=== PATIENT | male | born 1955 | race Caucasian/White ===

== ENCOUNTER 2016-11-15 14:05 | Inpatient (IN) | payer MEDICARE ==
[~2016-11-15] VITALS: Ht 182.9 cm; Wt 118.5 kg
[~2016-11-15 14:05] MED LIST: ALBU8.5H3 INH; AMIO200T42 PO; DIGO125T6 PO; DOCU250C16 PO; FERR324T18 PO; FERR325T10 PO; FERR325T20 PO; FLUT1BLS INH; FLUT1DIS3 INH; FURO-92 PO; FURO-93 PO; FURO20TA3 PO; FURO40TA6 PO; HYDR-3138 PO; LEVO100T5 PO; LEVO112T2 PO; LEVO112T4 PO; LEVO75TA5 PO; LISI2.5T PO; MAGN400T26 PO; METO2.5T PO; METO25TA35 PO; OMEP-110 PO; OXYC5TAB3 PO; POLY17PO5 PO; POTA20PA8 PO; PRAV20TA PO; PRAV20TA2 PO; SPIR25TA3 PO; WARF10TA6 PO; WARF10TA6 PO-COUM; WARF2.5T73 PO; WARF2.5T73 PO-COUM; WARF5TAB7 PO; WARF5TAB7 PO-COUM; WARF7.5T PO
[2016-11-15] MEDS ORDERED: ADENOSINE 6 MG/2 ML ONE (14:11)
[2016-11-15] MEDS ORDERED: DILTIAZEM 5 MG/ML, 5ML ONE ×2 (14:12→14:34)
[2016-11-15] MEDS ORDERED: ADENOSINE 6 MG/2 ML IVPush ONE (14:30)
[2016-11-15] MEDS ORDERED: SODIUM CHLORIDE FLUSH 10ML SYR IVF ONE (14:30)
[2016-11-15] MEDS ORDERED: DILTIAZEM 5 MG/ML, 5ML IV ONE ×2 (14:30→15:00)
[2016-11-15 14:49] LABS: BLOOD UREA NITROGEN 22 mg/dL (7-18)
[2016-11-15 14:55] LABS: IS PT STATUS REG ER OR PRE ER? YES
[2016-11-15] MEDS ORDERED: SODIUM CHLORIDE FLUSH 10ML SYR IVF PRN (16:00)
[2016-11-15 16:54] VITALS: BP 118/79
[2016-11-15] MEDS ORDERED: hydrALAzine 20 MG/ML, 1ML IVPush PRN (17:00)
[2016-11-15] MEDS ORDERED: NITROGLYCERIN 0.4 MG/SPRAY SL PRN (17:00)
[2016-11-15] MEDS ORDERED: POLYETHYLENE GLYCOL 17 GM PACKET PO PRN (17:00)
[2016-11-15] MEDS ORDERED: ONDANSETRON ODT 4 MG PO PRN (17:00)
[2016-11-15] MEDS ORDERED: BISACODYL 10 MG SUPP PR PRN (17:00)
[2016-11-15] MEDS ORDERED: ACETAMINOPHEN 325 MG TABLET PO PRN (17:00)
[2016-11-15] MEDS ORDERED: morphine SULFATE 10 MG/ML, 1ML IVPush PRN (17:00)
[2016-11-15] MEDS ORDERED: ONDANSETRON 2MG/ML, 2ML IVPush PRN (17:00)
[2016-11-15] MEDS ORDERED: DOCUSATE 100 MG CAPSULE PO PRN (17:00)
[2016-11-15] MEDS ORDERED: WARFARIN 5 MG TABLET PO-COUM SCH (18:00)
[2016-11-15] MEDS ORDERED: MAGNESIUM SULFATE PMX 2GM/50ML 50 ML IV ONE (18:00)
[2016-11-15 20:00] VITALS: BP 111/72
[2016-11-15 20:27] LABS: IS PT STATUS REG ER OR PRE ER? NO
[2016-11-15] MEDS: SPIRONOLACTONE 25 MG TABLET PO SCH (21:03)
[2016-11-15] MEDS: DOCUSATE CALCIUM 240 MG CAPSULE PO SCH (21:03)
[2016-11-15] MEDS: ENOXAPARIN 80 MG/0.8 ML SQ SCH (21:03)
[2016-11-15] MEDS: PRAVASTATIN 20 MG TABLET PO SCH (21:03)
[2016-11-15] MEDS: FERROUS SULFATE 325 MG TABLET PO SCH (21:03)
[2016-11-15] MEDS ORDERED: PNEUMOCOCCAL 23 VACCINE IM-VACC ONE (22:00)
[2016-11-16 00:53] VITALS: BP 189/99
[2016-11-16] MEDS: DILTIAZEM 5 MG/ML, 5ML IVPush PRN ×3 (01:10→08:08)
[2016-11-16 01:11] VITALS: BP 106/73
[2016-11-16 02:45] LABS: BLOOD UREA NITROGEN 23 mg/dL (7-18)
[2016-11-16 02:52] LABS: IS PT STATUS REG ER OR PRE ER? NO
[2016-11-16 02:54] LABS: ASPARTATE AMINO TRANSFERASE 30 U/L (15-37); TOTAL IRON BINDING CAPACITY 280 mcg/dL (250-450)
[2016-11-16 03:52] VITALS: BP 117/73
[2016-11-16 06:45] VITALS: BP 123/77
[2016-11-16] MEDS: SPIRONOLACTONE 25 MG TABLET PO SCH ×2 (08:07→20:50)
[2016-11-16] MEDS: FERROUS SULFATE 325 MG TABLET PO SCH ×2 (08:07→10:14)
[2016-11-16] MEDS: ENOXAPARIN 80 MG/0.8 ML SQ SCH ×2 (08:08→20:50)
[2016-11-16] MEDS: MAGNESIUM OXIDE 400 MG TABLET PO SCH (08:10)
[2016-11-16] MEDS ORDERED: LEVOTHYROXINE 112 MCG TABLET PO SCH ×2 (09:00)
[2016-11-16] MEDS ORDERED: DILTIAZEM 120 MG CAP.ER.24H PO SCH (10:00)
[2016-11-16] MEDS ORDERED: MORPHINE SULFATE 4 MG/ML, 1ML IVPush PRN (12:00)
[2016-11-16 13:14] VITALS: BP 119/84
[2016-11-16] MEDS ORDERED: DIGOXIN 0.25 MG/ML, 2ML ONE (13:25)
[2016-11-16] MEDS ORDERED: DIGOXIN 0.25 MG/ML, 2ML IVPush ONE (14:00)
[2016-11-16] MEDS ORDERED: DILTIAZEM 5 MG/ML, 5ML IVPush ONE (14:00)
[2016-11-16] MEDS ORDERED: WARFARIN 3 MG TABLET PO-COUM ONE (18:00)
[2016-11-16 20:03] VITALS: BP 115/76
[2016-11-16] MEDS: DOCUSATE CALCIUM 240 MG CAPSULE PO SCH (20:50)
[2016-11-16] MEDS: DILTIAZEM 120 MG CAP.ER.12H PO SCH (20:50)
[2016-11-16] MEDS: PRAVASTATIN 20 MG TABLET PO SCH (20:50)
[2016-11-17 02:00] VITALS: BP 104/62
[2016-11-17 05:35] LABS: BLOOD UREA NITROGEN 21 mg/dL (7-18)
[2016-11-17] MEDS: ENOXAPARIN 80 MG/0.8 ML SQ SCH ×2 (06:14→16:47)
[2016-11-17] MEDS: LEVOTHYROXINE 125 MCG TABLET PO SCH (06:44)
[2016-11-17] MEDS: DOCUSATE CALCIUM 240 MG CAPSULE PO SCH (07:35)
[2016-11-17] MEDS: SPIRONOLACTONE 25 MG TABLET PO SCH ×2 (07:36→21:47)
[2016-11-17] MEDS: MAGNESIUM OXIDE 400 MG TABLET PO SCH (07:36)
[2016-11-17] MEDS: DILTIAZEM 120 MG CAP.ER.12H PO SCH (07:36)
[2016-11-17] MEDS: FERROUS SULFATE 325 MG TABLET PO SCH (07:36)
[2016-11-17 07:41] VITALS: BP 128/70
[2016-11-17] MEDS ORDERED: MAGNESIUM SULFATE PMX 2GM/50ML 50 ML IV ONE (10:30)
[2016-11-17] MEDS ORDERED: POTASSIUM CHLORIDE 20 MEQ TAB.ER.PRT PO ONE (10:30)
[2016-11-17] MEDS ORDERED: DILTIAZEM 120 MG CAP.ER.12H PO ONE (12:00)
[2016-11-17 13:23] VITALS: BP 114/65
[2016-11-17] MEDS ORDERED: WARFARIN 2 MG TABLET PO-COUM ONE (18:00)
[2016-11-17 21:41] VITALS: BP 123/71
[2016-11-17] MEDS: PRAVASTATIN 20 MG TABLET PO SCH (21:47)
[2016-11-18 01:18] VITALS: BP 120/68
[2016-11-18 05:08] LABS: BLOOD UREA NITROGEN 20 mg/dL (7-18)
[2016-11-18] MEDS: ENOXAPARIN 80 MG/0.8 ML SQ SCH (05:15)
[2016-11-18] MEDS: LEVOTHYROXINE 125 MCG TABLET PO SCH (05:15)
[2016-11-18 06:51] VITALS: BP 116/63
[2016-11-18] MEDS ORDERED: DILTIAZEM 120 MG CAP.ER.12H PO SCH (09:00)
[2016-11-18] MEDS: SPIRONOLACTONE 25 MG TABLET PO SCH (09:51)
[2016-11-18] MEDS: MAGNESIUM OXIDE 400 MG TABLET PO SCH (09:52)
[2016-11-18] MEDS: FERROUS SULFATE 325 MG TABLET PO SCH (09:52)
[2016-11-18] MEDS ORDERED: SPIR25TA PO (10:54)
[2016-11-18] MEDS ORDERED: DILT120C11 PO (10:54)
[2016-11-18] MEDS ORDERED: MAGN400T26 PO (10:54)
[2016-11-18] MEDS ORDERED: LEVO125T PO (10:54)
[2016-11-18 15:24] VITALS: BP 123/70
[2016-11-18] MEDS ORDERED: WARFARIN 3 MG TABLET PO-COUM ONE (18:00)
== END 2016-11-18 17:27 | disposition home or self-care (01) | DRG 309 ==
LOC: ED 15:41 → EDIP 15:53 → 5SO 16:45
PROVIDERS: ADMIT Hospitalist; ATTEND Hospitalist
DX: I48.0 Paroxysmal atrial fibrillation (principal); D68.69 Other thrombophilia; I50.40 Unspecified combined systolic (congestive) and diastolic (congestive) heart failure; I13.0 Hypertensive heart and chronic kidney disease with heart failure and stage 1 through stage 4 chronic kidney disease, or unspecified chronic kidney disease; R00.0 Tachycardia, unspecified; D63.8 Anemia in other chronic diseases classified elsewhere; D69.6 Thrombocytopenia, unspecified; E03.9 Hypothyroidism, unspecified; E11.22 Type 2 diabetes mellitus with diabetic chronic kidney disease; E66.9 Obesity, unspecified; E78.5 Hyperlipidemia, unspecified; G47.30 Sleep apnea, unspecified; E83.42 Hypomagnesemia; I27.2 Other secondary pulmonary hypertension; I45.10 Unspecified right bundle-branch block; H53.9 Unspecified visual disturbance; R16.1 Splenomegaly, not elsewhere classified; K75.81 Nonalcoholic steatohepatitis (NASH); J44.9 Chronic obstructive pulmonary disease, unspecified; N18.3 Chronic kidney disease, stage 3 (moderate); Z79.01 Long term (current) use of anticoagulants; Z87.74 Personal history of (corrected) congenital malformations of heart and circulatory system; Z87.891 Personal history of nicotine dependence; I69.312 Visuospatial deficit and spatial neglect following cerebral infarction; Z91.14 Patient's other noncompliance with medication regimen; Z98.49 Cataract extraction status, unspecified eye; Q24.9 Congenital malformation of heart, unspecified; Z88.2 Allergy status to sulfonamides; Z79.899 Other long term (current) drug therapy; Z68.35 Body mass index [BMI] 35.0-35.9, adult
CPT/HCPCS: 36415; 71010; 80048; 80053; 82040; 82247; 82248; 83540; 83550; 83735; 84100; 84439; 84443; 84484; 85025; 85610; 85730; 90732; 93005; 96374; 96375; J0153; J1650; J1160; J3475

== ENCOUNTER 2016-11-24 16:01 | Inpatient (IN) | payer MEDICARE ==
[~2016-11-24] VITALS: Ht 182.9 cm; Wt 113.8 kg
[~2016-11-24 16:01] MED LIST changes: +DILT120C11 PO; +LEVO125T PO; +SPIR25TA PO
[2016-11-24] MEDS ORDERED: ADENOSINE 6 MG/2 ML ONE (16:24)
[2016-11-24] MEDS ORDERED: DILTIAZEM 125 MG in DEXTROSE 5% 100 ML IV SCH (16:27)
[2016-11-24] MEDS ORDERED: DILTIAZEM 5 MG/ML, 5ML IV ONE (16:30)
[2016-11-24] MEDS ORDERED: SODIUM CHLORIDE 0.9% 1,000ML IVBOLUS ONE (16:30)
[2016-11-24] MEDS ORDERED: ADENOSINE 6 MG/2 ML IVPush ONE ×2 (16:30)
[2016-11-24] MEDS ORDERED: SODIUM CHLORIDE FLUSH 10ML SYR IVF ONE (16:30)
[2016-11-24] MEDS ORDERED: DILTIAZEM 5 MG/ML, 5ML ONE (16:53)
[2016-11-24 17:01] LABS: ASPARTATE AMINO TRANSFERASE 30 U/L (15-37); BLOOD UREA NITROGEN 23 mg/dL (7-18)
[2016-11-24] MEDS ORDERED: DILTIAZEM 5 MG/ML, 5ML IVPush ONE (17:30)
[2016-11-24] MEDS ORDERED: POLYETHYLENE GLYCOL 17 GM PACKET PO PRN (19:00)
[2016-11-24] MEDS ORDERED: ACETAMINOPHEN 325 MG TABLET PO PRN (19:00)
[2016-11-24] MEDS ORDERED: ONDANSETRON 2MG/ML, 2ML IVPush PRN (19:00)
[2016-11-24] MEDS ORDERED: BISACODYL 10 MG SUPP PR PRN (19:00)
[2016-11-24] MEDS ORDERED: DILTIAZEM 125 MG in SODIUM CHLORIDE 0.9% 100 ML IV PRN (19:00)
[2016-11-24 19:30] LABS: IS PT STATUS REG ER OR PRE ER? NO
[2016-11-24] MEDS ORDERED: HEPARIN 5,000 UNITS/ML, 1ML IV ONE (19:30)
[2016-11-24 20:33] VITALS: BP 101/67
[2016-11-24] MEDS: HEPARIN 25,000 UNITS/500ML PMX 500 ML IV PRN (21:49)
[2016-11-24] MEDS: SPIRONOLACTONE 25 MG TABLET PO SCH (23:29)
[2016-11-24] MEDS: SODIUM CHLORIDE FLUSH 10ML SYR IVF SCH (23:29)
[2016-11-24] MEDS: PRAVASTATIN 20 MG TABLET PO SCH (23:29)
[2016-11-24] MEDS: FERROUS SULFATE 325 MG TABLET PO SCH (23:29)
[2016-11-24] MEDS: INSULIN ASPART 100 UNITS/ML, PEN SQ-INSULIN SCH (23:30)
[2016-11-25 00:38] VITALS: BP 114/91
[2016-11-25 01:31] LABS: IS PT STATUS REG ER OR PRE ER? NO
[2016-11-25] MEDS: HEPARIN 5,000 UNITS/ML, 1ML IV PRN (05:07)
[2016-11-25] MEDS: LEVOTHYROXINE 125 MCG TABLET PO SCH (06:25)
[2016-11-25] MEDS: INSULIN ASPART 100 UNITS/ML, PEN SQ-INSULIN SCH ×4 (07:00→21:15)
[2016-11-25 07:10] LABS: ASPARTATE AMINO TRANSFERASE 26 U/L (15-37); BLOOD UREA NITROGEN 25 mg/dL (7-18)
[2016-11-25 07:15] LABS: IS PT STATUS REG ER OR PRE ER? NO
[2016-11-25 07:30] VITALS: BP 108/68
[2016-11-25] MEDS ORDERED: WARFARIN 7.5 MG TABLET PO-COUM SCH (09:00)
[2016-11-25] MEDS: SPIRONOLACTONE 25 MG TABLET PO SCH ×2 (09:30→19:50)
[2016-11-25] MEDS: MAGNESIUM OXIDE 400 MG TABLET PO SCH (09:30)
[2016-11-25] MEDS: SODIUM CHLORIDE FLUSH 10ML SYR IVF SCH ×2 (09:30→19:51)
[2016-11-25] MEDS: SENNA/DOCUSATE TABLET PO SCH (09:31)
[2016-11-25] MEDS: FERROUS SULFATE 325 MG TABLET PO SCH ×2 (09:31→19:50)
[2016-11-25 14:00] VITALS: BP 116/75
[2016-11-25] MEDS: METOPROLOL TARTRATE 25 MG TABLET PO SCH (16:42)
[2016-11-25] MEDS ORDERED: WARFARIN 7.5 MG TABLET PO-COUM ONE (18:00)
[2016-11-25] MEDS: HEPARIN 25,000 UNITS/500ML PMX 500 ML IV PRN (18:24)
[2016-11-25 19:04] VITALS: BP 109/71
[2016-11-25] MEDS: PRAVASTATIN 20 MG TABLET PO SCH (19:50)
[2016-11-26 02:36] VITALS: BP 105/70
[2016-11-26 05:18] VITALS: BP 107/68
[2016-11-26] MEDS: LEVOTHYROXINE 125 MCG TABLET PO SCH (05:18)
[2016-11-26] MEDS: METOPROLOL TARTRATE 25 MG TABLET PO SCH (05:18)
[2016-11-26 05:36] LABS: ASPARTATE AMINO TRANSFERASE 24 U/L (15-37); BLOOD UREA NITROGEN 28 mg/dL (7-18)
[2016-11-26] MEDS: HEPARIN 5,000 UNITS/ML, 1ML IV PRN (05:46)
[2016-11-26] MEDS: INSULIN ASPART 100 UNITS/ML, PEN SQ-INSULIN SCH ×2 (07:24→12:01)
[2016-11-26 07:53] VITALS: BP 102/72
[2016-11-26] MEDS: SPIRONOLACTONE 25 MG TABLET PO SCH (08:19)
[2016-11-26] MEDS: SODIUM CHLORIDE FLUSH 10ML SYR IVF SCH (08:19)
[2016-11-26] MEDS: SENNA/DOCUSATE TABLET PO SCH (08:20)
[2016-11-26] MEDS: MAGNESIUM OXIDE 400 MG TABLET PO SCH (08:20)
[2016-11-26] MEDS: FERROUS SULFATE 325 MG TABLET PO SCH (08:20)
[2016-11-26] MEDS ORDERED: METO25TA35 PO (12:26)
[2016-11-26] MEDS ORDERED: WARF7.5T PO-COUM (12:26)
[2016-11-26] MEDS ORDERED: WARFARIN 7.5 MG TABLET PO-COUM SCH (18:00)
== END 2016-11-26 14:35 | disposition home or self-care (01) | DRG 291 ==
LOC: ED 16:18 → EDIP 18:01 → 5SO 19:14 → DCLOUNGE 11-26 14:16
PROVIDERS: ADMIT Hospitalist; ATTEND Hospitalist
DX: I13.0 Hypertensive heart and chronic kidney disease with heart failure and stage 1 through stage 4 chronic kidney disease, or unspecified chronic kidney disease (principal); I50.43 Acute on chronic combined systolic (congestive) and diastolic (congestive) heart failure; D68.69 Other thrombophilia; J84.9 Interstitial pulmonary disease, unspecified; R17 Unspecified jaundice; I48.0 Paroxysmal atrial fibrillation; J44.9 Chronic obstructive pulmonary disease, unspecified; N18.9 Chronic kidney disease, unspecified; I45.10 Unspecified right bundle-branch block; E03.9 Hypothyroidism, unspecified; E11.22 Type 2 diabetes mellitus with diabetic chronic kidney disease; G47.33 Obstructive sleep apnea (adult) (pediatric); I07.1 Rheumatic tricuspid insufficiency; I27.2 Other secondary pulmonary hypertension; I35.8 Other nonrheumatic aortic valve disorders; Z87.891 Personal history of nicotine dependence; I69.398 Other sequelae of cerebral infarction; Z79.01 Long term (current) use of anticoagulants; Z79.899 Other long term (current) drug therapy; Z88.2 Allergy status to sulfonamides
CPT/HCPCS: 36415; 71010; 80053; 82962; 83036; 83735; 83880; 84439; 84443; 84484; 85025; 85520; 85610; 85730; 93005; 93306; 96365; 96366; 96375; J0153; J1644; J1815; J7030

== ENCOUNTER 2016-12-12 13:38 | Inpatient (IN) | payer MEDICARE ==
[~2016-12-12] VITALS: Ht 182.9 cm; Wt 109.2 kg
[~2016-12-12 13:38] MED LIST changes: +WARF7.5T PO-COUM
[2016-12-12] MEDS ORDERED: DILTIAZEM 5 MG/ML, 5ML IVPush STA (14:07)
[2016-12-12] MEDS ORDERED: DILTIAZEM 5 MG/ML, 5ML ONE (14:20)
[2016-12-12] MEDS ORDERED: SODIUM CHLORIDE FLUSH 10ML SYR IVF ONE (14:30)
[2016-12-12] MEDS ORDERED: SODIUM CHLORIDE 0.9% 1,000ML IVBOLUS ONE (14:30)
[2016-12-12 14:45] LABS: HEMATOCRIT 46.2 % (39.2-51.8); HEMOGLOBIN 15.8 g/dL (13.7-18.0); WHITE BLOOD COUNT 8.4 x10^3/uL (3.4-10)
[2016-12-12 16:21] LABS: BLOOD UREA NITROGEN 27 mg/dL (7-18)
[2016-12-12 16:25] LABS: ASPARTATE AMINO TRANSFERASE 117 U/L (15-37)
[2016-12-12 16:31] LABS: IS PT STATUS REG ER OR PRE ER? YES
[2016-12-12] MEDS ORDERED: WARFARIN 7.5 MG TABLET PO-COUM SCH (18:00)
[2016-12-12] MEDS ORDERED: BISACODYL 10 MG SUPP PR PRN (18:00)
[2016-12-12] MEDS ORDERED: ONDANSETRON 2MG/ML, 2ML IVPush PRN (18:00)
[2016-12-12] MEDS ORDERED: ACETAMINOPHEN 325 MG TABLET PO PRN (18:00)
[2016-12-12] MEDS ORDERED: POLYETHYLENE GLYCOL 17 GM PACKET PO PRN (18:00)
[2016-12-12 18:33] VITALS: BP 109/74
[2016-12-12 19:48] VITALS: BP 106/69
[2016-12-12] MEDS: SPIRONOLACTONE 25 MG TABLET PO SCH (20:05)
[2016-12-12] MEDS: DOCUSATE 100 MG CAPSULE PO SCH (20:05)
[2016-12-12] MEDS: FERROUS SULFATE 325 MG TABLET PO SCH (20:05)
[2016-12-12] MEDS: PRAVASTATIN 20 MG TABLET PO SCH (20:06)
[2016-12-12] MEDS: METOPROLOL TARTRATE 50 MG TABLET PO SCH (20:06)
[2016-12-12] MEDS: FUROSEMIDE 20 MG/2 ML IV SCH (20:06)
[2016-12-12] MEDS: SODIUM CHLORIDE FLUSH 10ML SYR IVF SCH (20:07)
[2016-12-12] MEDS ORDERED: ALBUTEROL SULFATE 2.5 MG/3 ML NPPB PRN (20:30)
[2016-12-13 02:50] VITALS: BP 98/63
[2016-12-13 05:00] LABS: HEMATOCRIT 38.8 % (39.2-51.8); HEMOGLOBIN 13.1 g/dL (13.7-18.0); WHITE BLOOD COUNT 5.9 x10^3/uL (3.4-10)
[2016-12-13 05:12] LABS: BLOOD UREA NITROGEN 30 mg/dL (7-18)
[2016-12-13 05:16] LABS: ASPARTATE AMINO TRANSFERASE 146 U/L (15-37)
[2016-12-13 05:32] VITALS: BP 97/63
[2016-12-13] MEDS: LEVOTHYROXINE 125 MCG TABLET PO SCH (05:32)
[2016-12-13 08:35] VITALS: BP 111/69
[2016-12-13] MEDS: METOPROLOL TARTRATE 50 MG TABLET PO SCH ×2 (08:39→17:02)
[2016-12-13] MEDS: FUROSEMIDE 20 MG/2 ML IV SCH ×2 (08:39→17:02)
[2016-12-13] MEDS: SPIRONOLACTONE 25 MG TABLET PO SCH ×2 (08:40→22:00)
[2016-12-13] MEDS: MAGNESIUM OXIDE 400 MG TABLET PO SCH (08:40)
[2016-12-13] MEDS: FERROUS SULFATE 325 MG TABLET PO SCH ×2 (08:40→22:00)
[2016-12-13] MEDS: SODIUM CHLORIDE FLUSH 10ML SYR IVF SCH ×2 (08:40→22:00)
[2016-12-13 14:00] VITALS: BP 95/62
[2016-12-13] MEDS ORDERED: CEFAZOLIN PMX 1GM/50ML 50 ML IVPB ONE (14:30)
[2016-12-13 17:05] VITALS: BP 106/70
[2016-12-13 18:40] VITALS: BP 108/72
[2016-12-13] MEDS: PRAVASTATIN 20 MG TABLET PO SCH (22:00)
[2016-12-13] MEDS: DOCUSATE 100 MG CAPSULE PO SCH (22:00)
[2016-12-14 01:35] VITALS: BP 103/68
[2016-12-14] MEDS: LEVOTHYROXINE 125 MCG TABLET PO SCH (06:08)
[2016-12-14] MEDS: METOPROLOL TARTRATE 50 MG TABLET PO SCH ×2 (06:08→17:24)
[2016-12-14 06:57] VITALS: BP 104/66
[2016-12-14] MEDS: FUROSEMIDE 20 MG/2 ML IV SCH ×2 (08:24→17:24)
[2016-12-14] MEDS: SPIRONOLACTONE 25 MG TABLET PO SCH ×2 (08:24→21:03)
[2016-12-14] MEDS: FERROUS SULFATE 325 MG TABLET PO SCH ×2 (08:24→21:03)
[2016-12-14] MEDS: MAGNESIUM OXIDE 400 MG TABLET PO SCH (08:24)
[2016-12-14] MEDS: SODIUM CHLORIDE FLUSH 10ML SYR IVF SCH ×2 (08:25→21:05)
[2016-12-14 15:33] VITALS: BP 102/69
[2016-12-14 20:59] VITALS: BP 101/67
[2016-12-14] MEDS: PRAVASTATIN 20 MG TABLET PO SCH (21:03)
[2016-12-14] MEDS: DOCUSATE 100 MG CAPSULE PO SCH (21:03)
[2016-12-15 01:33] VITALS: BP 99/66
[2016-12-15 05:24] VITALS: BP 109/75
[2016-12-15 05:25] LABS: HEMATOCRIT 38.9 % (39.2-51.8); HEMOGLOBIN 13.5 g/dL (13.7-18.0); WHITE BLOOD COUNT 4.3 x10^3/uL (3.4-10)
[2016-12-15] MEDS: LEVOTHYROXINE 125 MCG TABLET PO SCH (05:25)
[2016-12-15] MEDS: METOPROLOL TARTRATE 50 MG TABLET PO SCH ×2 (05:25→17:26)
[2016-12-15 05:33] LABS: BLOOD UREA NITROGEN 34 mg/dL (7-18)
[2016-12-15 05:36] LABS: ASPARTATE AMINO TRANSFERASE 97 U/L (15-37)
[2016-12-15 09:05] VITALS: BP 106/71
[2016-12-15] MEDS: SPIRONOLACTONE 25 MG TABLET PO SCH ×2 (09:06→20:59)
[2016-12-15] MEDS: FUROSEMIDE 20 MG/2 ML IV SCH (09:06)
[2016-12-15] MEDS: MAGNESIUM OXIDE 400 MG TABLET PO SCH (09:06)
[2016-12-15] MEDS: FERROUS SULFATE 325 MG TABLET PO SCH ×2 (09:06→21:00)
[2016-12-15] MEDS: SODIUM CHLORIDE FLUSH 10ML SYR IVF SCH ×2 (09:07→20:58)
[2016-12-15 13:56] VITALS: BP 106/68
[2016-12-15 20:00] VITALS: BP 100/66
[2016-12-15] MEDS: DOCUSATE 100 MG CAPSULE PO SCH (20:59)
[2016-12-15] MEDS: PRAVASTATIN 20 MG TABLET PO SCH (21:00)
[2016-12-16 02:01] VITALS: BP 96/59
[2016-12-16 04:57] LABS: ASPARTATE AMINO TRANSFERASE 77 U/L (15-37); BLOOD UREA NITROGEN 32 mg/dL (7-18)
[2016-12-16] MEDS: METOPROLOL TARTRATE 50 MG TABLET PO SCH (06:00)
[2016-12-16 08:46] VITALS: BP 112/74
[2016-12-16] MEDS ORDERED: CEFAZOLIN PMX 1GM/50ML 50 ML IVPB ONE (09:00)
[2016-12-16] MEDS ORDERED: ENOXAPARIN 120MG/0.8ML SQ SCH (09:00)
[2016-12-16] MEDS: SODIUM CHLORIDE FLUSH 10ML SYR IVF SCH (10:19)
[2016-12-16] MEDS: FUROSEMIDE 20 MG/2 ML IV SCH (10:19)
[2016-12-16] MEDS: SPIRONOLACTONE 25 MG TABLET PO SCH ×2 (10:20→19:53)
[2016-12-16] MEDS: FERROUS SULFATE 325 MG TABLET PO SCH ×2 (10:20→19:54)
[2016-12-16] MEDS: MAGNESIUM OXIDE 400 MG TABLET PO SCH (10:20)
[2016-12-16 13:16] VITALS: BP 94/69
[2016-12-16] MEDS: METOPROLOL TARTRATE 25 MG TABLET PO SCH ×2 (15:00→19:54)
[2016-12-16] MEDS ORDERED: DIGOXIN 0.25 MG/ML, 2ML IVPush ONE (15:00)
[2016-12-16 19:00] VITALS: BP 105/62
[2016-12-16] MEDS: DOCUSATE 100 MG CAPSULE PO SCH (19:53)
[2016-12-16] MEDS: PRAVASTATIN 20 MG TABLET PO SCH (19:53)
[2016-12-16] MEDS ORDERED: ONDANSETRON 2MG/ML, 2ML IVPush PRN (20:00)
[2016-12-16] MEDS ORDERED: ACETAMINOPHEN 325 MG TABLET PO PRN (20:00)
[2016-12-16] MEDS ORDERED: BISACODYL 10 MG SUPP PR PRN (20:00)
[2016-12-17 01:21] VITALS: BP 99/64
[2016-12-17] MEDS: METOPROLOL TARTRATE 25 MG TABLET PO SCH ×3 (04:38→17:06)
[2016-12-17] MEDS: SODIUM CHLORIDE FLUSH 10ML SYR IVF SCH ×3 (04:38→21:25)
[2016-12-17 05:29] LABS: ASPARTATE AMINO TRANSFERASE 59 U/L (15-37); BLOOD UREA NITROGEN 29 mg/dL (7-18)
[2016-12-17 09:50] VITALS: BP 108/70
[2016-12-17] MEDS: SPIRONOLACTONE 25 MG TABLET PO SCH ×2 (09:54→21:24)
[2016-12-17] MEDS: MAGNESIUM OXIDE 400 MG TABLET PO SCH (09:54)
[2016-12-17] MEDS: FUROSEMIDE 20 MG/2 ML IV SCH (09:54)
[2016-12-17] MEDS: FERROUS SULFATE 325 MG TABLET PO SCH ×2 (09:54→21:28)
[2016-12-17] MEDS ORDERED: FENTANYL PF 100 MCG/2ML ONE (13:16)
[2016-12-17] MEDS ORDERED: CEFAZOLIN 1,000 MG ONE (13:16)
[2016-12-17] MEDS ORDERED: MIDAZOLAM 1 MG/ML, 5ML ONE (13:16)
[2016-12-17] MEDS ORDERED: CEFAZOLIN PMX 1GM/50ML 50 ML ONE (13:16)
[2016-12-17] MEDS ORDERED: LIDOCAINE 2%, 20ML ONE (13:16)
[2016-12-17] MEDS ORDERED: HYDROcodone/APAP 5/325 TABLET PO PRN (15:00)
[2016-12-17 15:48] VITALS: BP 101/67
[2016-12-17 19:34] VITALS: BP 104/69
[2016-12-17] MEDS: PRAVASTATIN 20 MG TABLET PO SCH (21:23)
[2016-12-17] MEDS: AMIODARONE 200 MG TABLET PO SCH (21:23)
[2016-12-17] MEDS: DOCUSATE 100 MG CAPSULE PO SCH (21:25)
[2016-12-17] MEDS: CEFAZOLIN PMX 1GM/50ML 50 ML IVPB SCH (21:28)
[2016-12-18 00:51] VITALS: BP 106/70
[2016-12-18] MEDS: CEFAZOLIN PMX 1GM/50ML 50 ML IVPB SCH ×2 (05:26→13:47)
[2016-12-18 06:39] LABS: ASPARTATE AMINO TRANSFERASE 49 U/L (15-37); BLOOD UREA NITROGEN 28 mg/dL (7-18)
[2016-12-18 07:50] VITALS: BP 111/70
[2016-12-18] MEDS: SODIUM CHLORIDE FLUSH 10ML SYR IVF SCH ×2 (08:20→20:42)
[2016-12-18] MEDS: MAGNESIUM OXIDE 400 MG TABLET PO SCH (08:20)
[2016-12-18] MEDS: SPIRONOLACTONE 25 MG TABLET PO SCH ×2 (08:20→20:42)
[2016-12-18] MEDS: FERROUS SULFATE 325 MG TABLET PO SCH ×2 (08:20→20:41)
[2016-12-18] MEDS: AMIODARONE 200 MG TABLET PO SCH (08:20)
[2016-12-18] MEDS ORDERED: FILTER 0.22 MICRON FOR AMIODARONE IV PRN (09:30)
[2016-12-18] MEDS ORDERED: AMIODARONE 150 MG in DEXTROSE 5% 100 ML IV ONE ×2 (09:30→11:00)
[2016-12-18] MEDS ORDERED: AMIODARONE 900 MG in DEXTROSE 5% 482 ML IV PRN (09:30)
[2016-12-18] MEDS ORDERED: DIGOXIN 0.25 MG/ML, 2ML IVPush ONE (13:30)
[2016-12-18 15:09] VITALS: BP 101/71
[2016-12-18] MEDS ORDERED: WARFARIN 5 MG TABLET PO-COUM SCH (18:00)
[2016-12-18 19:05] VITALS: BP 109/67
[2016-12-18] MEDS: PRAVASTATIN 20 MG TABLET PO SCH (20:41)
[2016-12-18] MEDS: DOCUSATE 100 MG CAPSULE PO SCH (20:42)
[2016-12-19 02:41] VITALS: BP 117/75
[2016-12-19 06:01] LABS: BLOOD UREA NITROGEN 30 mg/dL (7-18); HEMOGLOBIN 15.2 g/dL (13.7-18.0); WHITE BLOOD COUNT 5.9 x10^3/uL (3.4-10)
[2016-12-19 06:39] VITALS: BP 107/67
[2016-12-19] MEDS ORDERED: WARF5TAB PO-COUM (08:39)
[2016-12-19] MEDS ORDERED: AMIO200T42 PO (08:39)
[2016-12-19] MEDS: SODIUM CHLORIDE FLUSH 10ML SYR IVF SCH (08:41)
[2016-12-19] MEDS: SPIRONOLACTONE 25 MG TABLET PO SCH (08:41)
[2016-12-19] MEDS: FERROUS SULFATE 325 MG TABLET PO SCH (08:41)
[2016-12-19] MEDS: MAGNESIUM OXIDE 400 MG TABLET PO SCH (08:41)
== END 2016-12-19 11:35 | disposition home health service (06) | DRG 242 ==
LOC: ED 15:54 → EDIP 17:32 → 5SO 18:22 → DCLOUNGE 12-19 11:03
PROVIDERS: ADMIT Internal Medicine; ATTEND Internal Medicine
PROC: 0JH604Z Insertion of Pacemaker, Single Chamber into Chest Subcutaneous Tissue and Fascia, Open Approach (ICD-10-PCS; principal; 2016-12-12)
PROC: 02HK3JZ Insertion of Pacemaker Lead into Right Ventricle, Percutaneous Approach (ICD-10-PCS; 2016-12-12)
DX: I49.5 Sick sinus syndrome (principal); I50.43 Acute on chronic combined systolic (congestive) and diastolic (congestive) heart failure; D68.69 Other thrombophilia; E87.2 Acidosis; I13.0 Hypertensive heart and chronic kidney disease with heart failure and stage 1 through stage 4 chronic kidney disease, or unspecified chronic kidney disease; I48.92 Unspecified atrial flutter; I42.0 Dilated cardiomyopathy; I27.2 Other secondary pulmonary hypertension; D64.9 Anemia, unspecified; D69.6 Thrombocytopenia, unspecified; E03.9 Hypothyroidism, unspecified; E11.22 Type 2 diabetes mellitus with diabetic chronic kidney disease; E66.9 Obesity, unspecified; E78.5 Hyperlipidemia, unspecified; G47.33 Obstructive sleep apnea (adult) (pediatric); I07.1 Rheumatic tricuspid insufficiency; I45.10 Unspecified right bundle-branch block; I48.0 Paroxysmal atrial fibrillation; J44.9 Chronic obstructive pulmonary disease, unspecified; N18.2 Chronic kidney disease, stage 2 (mild); Z79.01 Long term (current) use of anticoagulants; Z82.49 Family history of ischemic heart disease and other diseases of the circulatory system; Z83.3 Family history of diabetes mellitus; Z86.73 Personal history of transient ischemic attack (TIA), and cerebral infarction without residual deficits; Z87.891 Personal history of nicotine dependence; Z91.19 Patient's noncompliance with other medical treatment and regimen; Z79.899 Other long term (current) drug therapy; Z88.2 Allergy status to sulfonamides
CPT/HCPCS: 33207; 36415; 71010; 76700; 80048; 80053; 82962; 83605; 83735; 83880; 84443; 84484; 85025; 85610; 93005; 96361; 96374; 99156; 99157; C1769; C1779; C1786; C1892; J0690; J1650; J2250; J3010; J3490; J0282; J1160; J1940; J7030; J7060

== ENCOUNTER → 2017-01-11 | Outpatient (CLI) | payer MEDICARE ==
[~2017-01-11] MED LIST changes: -ALBU8.5H3 INH; +ALBU8.5H8 INH; -DOCU250C16 PO; +DOCU250C62 PO; +FERR-36 PO; -FERR325T10 PO; +FERR325T18 PO; -FERR325T20 PO; -HYDR-3138 PO; +HYDR-3237 PO; +POTA20PA25 PO; -POTA20PA8 PO; +WARF1TAB PO-COUM; +WARF5TAB PO-COUM
== END | disposition home or self-care (01) ==
LOC: RAD 11:47
PROVIDERS: ATTEND Internal Medicine
DX: I50.9 Heart failure, unspecified (principal); J90 Pleural effusion, not elsewhere classified
CPT/HCPCS: 71020

== ENCOUNTER → 2017-04-15 | Outpatient (CLI) | payer MEDICARE | END | disposition home or self-care (01) | LOC: RAD 14:00 | PROVIDERS: ATTEND Internal Medicine Cardiovascular Disease | DX: J98.4 Other disorders of lung (principal); I48.92 Unspecified atrial flutter; Z95.0 Presence of cardiac pacemaker | CPT/HCPCS: 71020 ==

== ENCOUNTER 2018-02-10 16:08 | Inpatient (IN) | payer MEDICARE ==
[~2018-02-10] VITALS: Ht 182.9 cm; Wt 122.1 kg
[~2018-02-10 16:08] MED LIST changes: +CARV3.122 PO; -DIGO125T6 PO; +DIGO125T81 PO; -FERR-36 PO; +FERR-51 PO; +LISI5TAB7 PO; +POTA20TA6 PO; -SPIR25TA3 PO; +SPIR25TA5 PO; +WARF-36 PO; +WARF-36 PO-COUM; +WARF10TA43 PO; +WARF10TA43 PO-COUM; -WARF10TA6 PO; -WARF10TA6 PO-COUM; -WARF5TAB7 PO; -WARF5TAB7 PO-COUM
[2018-02-10] MEDS ORDERED: SODIUM CHLORIDE FLUSH 10ML SYR IVF ONE (16:30)
[2018-02-10] MEDS ORDERED: CEFTRIAXONE PMX 1GM/50ML 50 ML ONE (16:54)
[2018-02-10 16:58] LABS: INTERNATIONAL NORMALIZED RATIO 1.87 (0.93-1.1)
[2018-02-10] MEDS ORDERED: CEFTRIAXONE 1,000 MG in SODIUM CHLORIDE 0.9% 50 ML IVPB ONE (17:00)
[2018-02-10 17:02] LABS: ALBUMIN 2.7 g/dL (3.4-5.0); ANION GAP 9 mmol/L (5-15); CALCIUM 8.3 mg/dL (8.5-10.1); CHLORIDE 108 mmol/L (98-107)
[2018-02-10 17:07] LABS: ALANINE AMINOTRANSFERASE 22 U/L (12-78); ALKALINE PHOSPHATASE 89 U/L (45-117); BILIRUBIN,TOTAL 4.5 mg/dL (0.2-1.0); CREATININE 2.12 mg/dL (0.7-1.3); TOTAL PROTEIN 7.1 g/dL (6.4-8.2); TROPONIN I 0.055 ng/mL (0.000-0.045)
[2018-02-10 17:22] LABS: BASOPHILS % (AUTO) 0 % (0-1); EOSINOPHILS % (AUTO) 0 % (1-7); HEMOGRAM NOTE RECHECKED; LYMPHOCYTES # (AUTO) 0.49 x10^3/uL (1-3.4); LYMPHOCYTES % (AUTO) 4 % (22-44); MD SCAN; MEAN CORPUSCULAR HEMOGLOBIN 32.1 pg (27.5-34.5); MEAN CORPUSCULAR HGB CONC 33.4 g/dL (33.2-36.2); MEAN PLATELET VOLUME 10.6 fL (7.4-10.4); MONOCYTES # (AUTO) 0.35 x10^3/uL (0.2-0.8); MONOCYTES % (AUTO) 3 % (2-9); NEUTROPHILS # (AUTO) 12.33 x10^3/uL (1.8-6.8); NEUTROPHILS % (AUTO) 94 % (42-75); PLATELET COUNT 81 x10^3/uL (130-400); RED BLOOD COUNT 3.97 x10^6/uL (4.38-5.82); RED CELL DISTRIBUTION WIDTH 16.6 % (9.4-14.8)
[2018-02-10] MEDS ORDERED: AZITHROMYCIN 500 MG in SODIUM CHLORIDE 0.9% 250 ML IV SCH (18:00)
[2018-02-10] MEDS ORDERED: OXYcodone IR 5MG TABLET PO PRN (18:00)
[2018-02-10] MEDS ORDERED: ACETAMINOPHEN 500 MG TABLET PO PRN (18:00)
[2018-02-10] MEDS: HEPARIN 5,000 UNITS/ML, 1ML SQ SCH (18:17)
[2018-02-10 18:21] VITALS: BP 92/54
[2018-02-10 18:25] VITALS: BP 89/52
[2018-02-10] MEDS ORDERED: LACTATED RINGERS 1,000 ML IVBOLUS ONE (18:30)
[2018-02-10] MEDS ORDERED: WARFARIN 3 MG TABLET PO-COUM ONE (18:30)
[2018-02-10 18:40] VITALS: BP 86/43
[2018-02-10] MEDS: PRAVASTATIN 20 MG TABLET PO SCH (20:00)
[2018-02-10] MEDS: LACTULOSE 10 GM/15 ML UDC PO SCH (20:00)
[2018-02-10] MEDS: INSULIN LISPRO 100 UNITS/ML, PEN SQ-INSULIN SCH (20:03)
[2018-02-10] MEDS ORDERED: ALBUTEROL SULFATE 2.5 MG/3 ML NPPB PRN (20:30)
[2018-02-10 22:40] LABS: TROPONIN I 0.046 ng/mL (0.000-0.045)
[2018-02-10] MEDS: SODIUM CHLORIDE 0.9% 1,000 ML IV SCH (22:52)
[2018-02-11] MEDS: HEPARIN 5,000 UNITS/ML, 1ML SQ SCH ×3 (02:33→16:58)
[2018-02-11 04:30] LABS: INTERNATIONAL NORMALIZED RATIO 1.89 (0.93-1.1); MEAN CORPUSCULAR HEMOGLOBIN 32.5 pg (27.5-34.5); MEAN CORPUSCULAR HGB CONC 33.4 g/dL (33.2-36.2); MEAN CORPUSCULAR VOLUME 97.3 fL (81-97); PROTHROMBIN TIME 19.2 Seconds (9.6-11.5); RED BLOOD COUNT 3.81 x10^6/uL (4.38-5.82)
[2018-02-11 04:33] LABS: ALANINE AMINOTRANSFERASE 21 U/L (12-78); ALBUMIN 2.7 g/dL (3.4-5.0); ANION GAP 8 mmol/L (5-15); CHLORIDE 107 mmol/L (98-107); CREATININE 2.45 mg/dL (0.7-1.3)
[2018-02-11 04:36] LABS: ALKALINE PHOSPHATASE 88 U/L (45-117); TOTAL PROTEIN 7.2 g/dL (6.4-8.2)
[2018-02-11 04:46] LABS: HEMOGLOBIN A1C 4.7 % (4.2-6.3)
[2018-02-11 04:48] LABS: BASOPHILS # (AUTO) 0.05 x10^3/uL (0-0.1); BASOPHILS % (AUTO) 0 % (0-1); EOSINOPHILS # (AUTO) 0.03 x10^3/uL (0-0.4); EOSINOPHILS % (AUTO) 0 % (1-7); LYMPHOCYTES # (AUTO) 0.42 x10^3/uL (1-3.4); LYMPHOCYTES % (AUTO) 4 % (22-44); MD SCAN; MEAN PLATELET VOLUME 10.1 fL (7.4-10.4); MONOCYTES # (AUTO) 0.63 x10^3/uL (0.2-0.8); MONOCYTES % (AUTO) 5 % (2-9); NEUTROPHILS # (AUTO) 10.86 x10^3/uL (1.8-6.8); NEUTROPHILS % (AUTO) 91 % (42-75); PLATELET COUNT 74 x10^3/uL (130-400)
[2018-02-11] MEDS ORDERED: METOPROLOL TARTRATE 25 MG TABLET PO SCH (06:00)
[2018-02-11] MEDS: LEVOTHYROXINE 125 MCG TABLET PO SCH (06:03)
[2018-02-11] MEDS: SODIUM CHLORIDE 0.9% 1,000 ML IV SCH (06:03)
[2018-02-11] MEDS: INSULIN LISPRO 100 UNITS/ML, PEN SQ-INSULIN SCH ×4 (06:05→21:00)
[2018-02-11] MEDS: D5%-0.9% NACL 1,000 ML IV SCH (07:36)
[2018-02-11] MEDS: AMIODARONE 200 MG TABLET PO SCH (07:36)
[2018-02-11] MEDS: LACTULOSE 10 GM/15 ML UDC PO SCH ×2 (07:36→21:01)
[2018-02-11 08:18] VITALS: BP 120/59
[2018-02-11] MEDS: CEFTRIAXONE PMX 1GM/50ML 50 ML IV SCH (09:38)
[2018-02-11] MEDS: DOXYCYCLINE 100 MG in DEXTROSE 5% 250 ML IV SCH ×2 (10:54→21:01)
[2018-02-11 16:14] LABS: MICROSCOPIC INDICATED
[2018-02-11 16:15] LABS: CULTURE INDICATED? YES
[2018-02-11] MEDS: MIDODRINE 5 MG TABLET PO SCH ×2 (16:56→21:01)
[2018-02-11] MEDS ORDERED: WARFARIN 3 MG TABLET PO-COUM SCH (18:00)
[2018-02-11] MEDS ORDERED: CEFTRIAXONE 1,000 MG IM SCH (18:30)
[2018-02-11] MEDS: PRAVASTATIN 20 MG TABLET PO SCH (21:01)
[2018-02-12] MEDS: HEPARIN 5,000 UNITS/ML, 1ML SQ SCH ×3 (01:16→18:09)
[2018-02-12] MEDS: D5%-0.9% NACL 1,000 ML IV SCH (03:30)
[2018-02-12 04:25] LABS: MEAN CORPUSCULAR HEMOGLOBIN 31.6 pg (27.5-34.5); MEAN CORPUSCULAR HGB CONC 32.7 g/dL (33.2-36.2); MEAN CORPUSCULAR VOLUME 96.5 fL (81-97); RED BLOOD COUNT 3.84 x10^6/uL (4.38-5.82); RED CELL DISTRIBUTION WIDTH 18.1 % (9.4-14.8)
[2018-02-12 04:33] LABS: INTERNATIONAL NORMALIZED RATIO 2.31 (0.93-1.1); PROTHROMBIN TIME 23.4 Seconds (9.6-11.5)
[2018-02-12 04:36] LABS: ALBUMIN 2.6 g/dL (3.4-5.0); ANION GAP 6 mmol/L (5-15); CALCIUM 8.2 mg/dL (8.5-10.1); CHLORIDE 107 mmol/L (98-107)
[2018-02-12 04:40] LABS: ALANINE AMINOTRANSFERASE 20 U/L (12-78); ALKALINE PHOSPHATASE 91 U/L (45-117); BILIRUBIN,TOTAL 2.8 mg/dL (0.2-1.0); CREATINE KINASE, TOTAL 99 U/L (39-308); CREATININE 2.43 mg/dL (0.7-1.3); TOTAL PROTEIN 7.3 g/dL (6.4-8.2)
[2018-02-12 05:15] LABS: BASOPHILS # (AUTO) 0.05 x10^3/uL (0-0.1); BASOPHILS % (AUTO) 1 % (0-1); EOSINOPHILS % (AUTO) 1 % (1-7); LYMPHOCYTES % (AUTO) 4 % (22-44); MD SCAN; MEAN PLATELET VOLUME 9.6 fL (7.4-10.4); MONOCYTES # (AUTO) 0.45 x10^3/uL (0.2-0.8); MONOCYTES % (AUTO) 6 % (2-9); NEUTROPHILS # (AUTO) 7.15 x10^3/uL (1.8-6.8); NEUTROPHILS % (AUTO) 89 % (42-75); PLATELET COUNT 88 x10^3/uL (130-400)
[2018-02-12] MEDS: LEVOTHYROXINE 125 MCG TABLET PO SCH (06:21)
[2018-02-12] MEDS: INSULIN LISPRO 100 UNITS/ML, PEN SQ-INSULIN SCH ×4 (07:00→21:00)
[2018-02-12] MEDS: LACTULOSE 10 GM/15 ML UDC PO SCH ×2 (08:28→21:16)
[2018-02-12] MEDS: MIDODRINE 5 MG TABLET PO SCH ×3 (08:29→21:16)
[2018-02-12] MEDS: AMIODARONE 200 MG TABLET PO SCH (08:29)
[2018-02-12] MEDS: CEFTRIAXONE PMX 1GM/50ML 50 ML IV SCH (09:00)
[2018-02-12] MEDS: DOXYCYCLINE 100 MG in DEXTROSE 5% 250 ML IV SCH ×2 (09:30→21:16)
[2018-02-12] MEDS ORDERED: WARFARIN 5 MG TABLET PO-COUM ONE (18:00)
[2018-02-12 19:56] VITALS: BP 120/75
[2018-02-12] MEDS: PRAVASTATIN 20 MG TABLET PO SCH (21:16)
[2018-02-13] MEDS: D5%-0.9% NACL 1,000 ML IV SCH (01:13)
[2018-02-13 01:30] VITALS: BP 131/74
[2018-02-13] MEDS: HEPARIN 5,000 UNITS/ML, 1ML SQ SCH ×3 (03:40→18:12)
[2018-02-13 04:39] LABS: INTERNATIONAL NORMALIZED RATIO 2.95 (0.93-1.1); PROTHROMBIN TIME 29.7 Seconds (9.6-11.5)
[2018-02-13 04:46] LABS: CHLORIDE 106 mmol/L (98-107)
[2018-02-13 04:50] LABS: ANION GAP 7 mmol/L (5-15); CALCIUM 8.2 mg/dL (8.5-10.1); CREATININE 1.91 mg/dL (0.7-1.3)
[2018-02-13 05:16] LABS: MEAN CORPUSCULAR HEMOGLOBIN 31.9 pg (27.5-34.5); MEAN CORPUSCULAR HGB CONC 33.3 g/dL (33.2-36.2); MEAN CORPUSCULAR VOLUME 95.9 fL (81-97); RED BLOOD COUNT 3.74 x10^6/uL (4.38-5.82); RED CELL DISTRIBUTION WIDTH 17.1 % (9.4-14.8)
[2018-02-13] MEDS: LEVOTHYROXINE 125 MCG TABLET PO SCH (05:37)
[2018-02-13 06:02] LABS: BASOPHILS # (AUTO) 0.02 x10^3/uL (0-0.1); BASOPHILS % (AUTO) 0 % (0-1); EOSINOPHILS # (AUTO) 0.15 x10^3/uL (0-0.4); EOSINOPHILS % (AUTO) 2 % (1-7); LYMPHOCYTES # (AUTO) 0.44 x10^3/uL (1-3.4); LYMPHOCYTES % (AUTO) 7 % (22-44); MD SCAN; MONOCYTES # (AUTO) 0.49 x10^3/uL (0.2-0.8); MONOCYTES % (AUTO) 8 % (2-9); NEUTROPHILS # (AUTO) 5.17 x10^3/uL (1.8-6.8); NEUTROPHILS % (AUTO) 83 % (42-75); PLATELET COUNT 98 x10^3/uL (130-400)
[2018-02-13] MEDS: INSULIN LISPRO 100 UNITS/ML, PEN SQ-INSULIN SCH ×4 (07:00→21:00)
[2018-02-13 08:06] VITALS: BP 124/75
[2018-02-13] MEDS: CEFTRIAXONE PMX 1GM/50ML 50 ML IV SCH (08:06)
[2018-02-13 08:26] LABS: CLOSTRIDIUM DIFFICILE ANTIGEN NEGATIVE; CLOSTRIDIUM DIFFICILE TOXIN NEGATIVE (Negative)
[2018-02-13] MEDS: MIDODRINE 5 MG TABLET PO SCH ×3 (09:50→21:37)
[2018-02-13] MEDS: AMIODARONE 200 MG TABLET PO SCH (09:50)
[2018-02-13] MEDS: LACTULOSE 10 GM/15 ML UDC PO SCH ×2 (09:50→21:37)
[2018-02-13] MEDS: DOXYCYCLINE 100 MG in DEXTROSE 5% 250 ML IV SCH ×2 (09:51→21:37)
[2018-02-13 14:28] VITALS: BP 125/65
[2018-02-13] MEDS ORDERED: WARFARIN 2 MG TABLET PO-COUM SCH (18:00)
[2018-02-13 19:01] VITALS: BP 143/83
[2018-02-13] MEDS: PRAVASTATIN 20 MG TABLET PO SCH (21:37)
[2018-02-14 00:37] VITALS: BP 136/77
[2018-02-14] MEDS: HEPARIN 5,000 UNITS/ML, 1ML SQ SCH ×3 (04:11→20:32)
[2018-02-14 04:52] LABS: INTERNATIONAL NORMALIZED RATIO 3.68 (0.93-1.1); PROTHROMBIN TIME 36.9 Seconds (9.6-11.5)
[2018-02-14] MEDS: LEVOTHYROXINE 125 MCG TABLET PO SCH (05:53)
[2018-02-14] MEDS: INSULIN LISPRO 100 UNITS/ML, PEN SQ-INSULIN SCH ×4 (07:00→20:18)
[2018-02-14 07:52] VITALS: BP 149/78
[2018-02-14] MEDS: CEFTRIAXONE PMX 1GM/50ML 50 ML IV SCH (10:06)
[2018-02-14] MEDS: LACTULOSE 10 GM/15 ML UDC PO SCH ×2 (10:06→20:32)
[2018-02-14] MEDS: AMIODARONE 200 MG TABLET PO SCH (10:07)
[2018-02-14] MEDS: MIDODRINE 5 MG TABLET PO SCH ×3 (10:07→21:00)
[2018-02-14] MEDS: DOXYCYCLINE 100 MG in DEXTROSE 5% 250 ML IV SCH ×2 (12:39→23:27)
[2018-02-14 14:57] VITALS: BP 152/83
[2018-02-14] MEDS ORDERED: WARFARIN 1 MG TABLET PO-COUM SCH (18:00)
[2018-02-14 18:38] VITALS: BP 144/77
[2018-02-14] MEDS: PRAVASTATIN 20 MG TABLET PO SCH (20:32)
[2018-02-15 02:44] VITALS: BP 135/74
[2018-02-15] MEDS: HEPARIN 5,000 UNITS/ML, 1ML SQ SCH ×3 (04:12→20:11)
[2018-02-15 05:22] LABS: INTERNATIONAL NORMALIZED RATIO 3.56 (0.93-1.1); PROTHROMBIN TIME 35.8 Seconds (9.6-11.5)
[2018-02-15] MEDS: LEVOTHYROXINE 125 MCG TABLET PO SCH (06:20)
[2018-02-15] MEDS: INSULIN LISPRO 100 UNITS/ML, PEN SQ-INSULIN SCH (07:00)
[2018-02-15 08:00] VITALS: BP 132/70
[2018-02-15] MEDS: LACTULOSE 10 GM/15 ML UDC PO SCH (09:40)
[2018-02-15] MEDS: MIDODRINE 5 MG TABLET PO SCH ×3 (09:41→21:00)
[2018-02-15] MEDS: CEFTRIAXONE PMX 1GM/50ML 50 ML IV SCH (09:41)
[2018-02-15] MEDS: AMIODARONE 200 MG TABLET PO SCH (09:41)
[2018-02-15] MEDS ORDERED: FUROSEMIDE 20 MG/2 ML IV ONE (10:30)
[2018-02-15 12:53] VITALS: BP 126/74
[2018-02-15] MEDS: AMOXICILLIN/CLAV 500-125MG TABLET PO SCH ×2 (14:37→22:06)
[2018-02-15] MEDS ORDERED: WARFARIN 1 MG TABLET PO-COUM SCH (18:00)
[2018-02-15 18:51] VITALS: BP 134/76
[2018-02-15] MEDS: PRAVASTATIN 20 MG TABLET PO SCH (20:11)
[2018-02-16 02:34] VITALS: BP 136/76
[2018-02-16] MEDS: HEPARIN 5,000 UNITS/ML, 1ML SQ SCH ×3 (04:41→23:37)
[2018-02-16 05:14] LABS: BASOPHILS # (AUTO) 0.01 x10^3/uL (0-0.1); BASOPHILS % (AUTO) 0 % (0-1); EOSINOPHILS # (AUTO) 0.19 x10^3/uL (0-0.4); EOSINOPHILS % (AUTO) 4 % (1-7); LYMPHOCYTES # (AUTO) 0.47 x10^3/uL (1-3.4); LYMPHOCYTES % (AUTO) 9 % (22-44); MD NO; MEAN CORPUSCULAR HEMOGLOBIN 31.8 pg (27.5-34.5); MEAN CORPUSCULAR HGB CONC 33.5 g/dL (33.2-36.2); MEAN CORPUSCULAR VOLUME 95.2 fL (81-97); MEAN PLATELET VOLUME 9.1 fL (7.4-10.4); MONOCYTES # (AUTO) 0.52 x10^3/uL (0.2-0.8); MONOCYTES % (AUTO) 10 % (2-9); NEUTROPHILS # (AUTO) 4.04 x10^3/uL (1.8-6.8); NEUTROPHILS % (AUTO) 77 % (42-75); PLATELET COUNT 107 x10^3/uL (130-400); RED BLOOD COUNT 3.79 x10^6/uL (4.38-5.82); RED CELL DISTRIBUTION WIDTH 16.9 % (9.4-14.8)
[2018-02-16 05:15] LABS: INTERNATIONAL NORMALIZED RATIO 3.62 (0.93-1.1); PROTHROMBIN TIME 36.4 Seconds (9.6-11.5)
[2018-02-16 05:28] LABS: CHLORIDE 104 mmol/L (98-107)
[2018-02-16 05:32] LABS: ANION GAP 7 mmol/L (5-15); CALCIUM 8.5 mg/dL (8.5-10.1); CREATININE 1.14 mg/dL (0.7-1.3)
[2018-02-16] MEDS: AMOXICILLIN/CLAV 500-125MG TABLET PO SCH ×3 (06:20→20:21)
[2018-02-16] MEDS: LEVOTHYROXINE 125 MCG TABLET PO SCH (06:20)
[2018-02-16 07:34] VITALS: BP 122/70
[2018-02-16] MEDS: FUROSEMIDE 40 MG TABLET PO SCH (08:47)
[2018-02-16] MEDS: AMIODARONE 200 MG TABLET PO SCH (08:48)
[2018-02-16] MEDS: MIDODRINE 5 MG TABLET PO SCH ×3 (08:49→20:21)
[2018-02-16 15:16] VITALS: BP 124/67
[2018-02-16] MEDS ORDERED: WARFARIN 1 MG TABLET PO-COUM SCH (18:00)
[2018-02-16 18:49] VITALS: BP 144/70
[2018-02-16] MEDS: PRAVASTATIN 20 MG TABLET PO SCH (20:21)
[2018-02-17 02:11] VITALS: BP 124/74
[2018-02-17] MEDS: HEPARIN 5,000 UNITS/ML, 1ML SQ SCH (06:08)
[2018-02-17] MEDS: LEVOTHYROXINE 125 MCG TABLET PO SCH (06:09)
[2018-02-17] MEDS: AMOXICILLIN/CLAV 500-125MG TABLET PO SCH ×3 (06:09→23:59)
[2018-02-17 06:34] LABS: INTERNATIONAL NORMALIZED RATIO 2.78 (0.93-1.1); PROTHROMBIN TIME 28.1 Seconds (9.6-11.5)
[2018-02-17 06:54] VITALS: BP 120/70
[2018-02-17] MEDS: FUROSEMIDE 40 MG TABLET PO SCH (10:30)
[2018-02-17] MEDS: AMIODARONE 200 MG TABLET PO SCH (10:31)
[2018-02-17] MEDS: MIDODRINE 5 MG TABLET PO SCH ×3 (10:32→21:24)
[2018-02-17 12:45] VITALS: BP 138/76
[2018-02-17] MEDS ORDERED: WARFARIN 1 MG TABLET PO-COUM ONE (18:00)
[2018-02-17 20:30] VITALS: BP 114/60
[2018-02-17] MEDS: PRAVASTATIN 20 MG TABLET PO SCH (21:24)
[2018-02-18 00:25] VITALS: BP 137/79
[2018-02-18 05:42] LABS: INTERNATIONAL NORMALIZED RATIO 2.67 (0.93-1.1)
[2018-02-18] MEDS: LEVOTHYROXINE 125 MCG TABLET PO SCH (06:31)
[2018-02-18 07:22] VITALS: BP 125/73
[2018-02-18] MEDS: MIDODRINE 5 MG TABLET PO SCH (07:28)
[2018-02-18] MEDS: AMIODARONE 200 MG TABLET PO SCH (07:28)
[2018-02-18] MEDS: FUROSEMIDE 40 MG TABLET PO SCH (07:28)
[2018-02-18] MEDS: AMOXICILLIN/CLAV 500-125MG TABLET PO SCH ×2 (07:28→16:00)
[2018-02-18] MEDS ORDERED: SPIRONOLACTONE 100 MG TABLET PO SCH (11:30)
[2018-02-18] MEDS ORDERED: SPIR100T PO (12:05)
[2018-02-18 12:17] VITALS: BP 132/80
[2018-02-18] MEDS ORDERED: MIDODRINE 5 MG TABLET PO SCH (16:00)
[2018-02-18] MEDS ORDERED: WARFARIN 1 MG TABLET PO-COUM ONE (18:00)
== END 2018-02-18 16:13 | DRG 871 ==
LOC: ED 16:59 → EDIP 17:00 → ED 17:03 → 5SO 17:48 → CCU 18:42 → 3NE 02-12 18:12
PROVIDERS: ADMIT Internal Medicine; ATTEND Internal Medicine
DX: A41.9 Sepsis, unspecified organism (principal); J96.01 Acute respiratory failure with hypoxia; N17.0 Acute kidney failure with tubular necrosis; J15.9 Unspecified bacterial pneumonia; I50.43 Acute on chronic combined systolic (congestive) and diastolic (congestive) heart failure; L03.115 Cellulitis of right lower limb; D68.69 Other thrombophilia; I13.0 Hypertensive heart and chronic kidney disease with heart failure and stage 1 through stage 4 chronic kidney disease, or unspecified chronic kidney disease; I38 Endocarditis, valve unspecified; F11.20 Opioid dependence, uncomplicated; K74.60 Unspecified cirrhosis of liver; E11.22 Type 2 diabetes mellitus with diabetic chronic kidney disease; D69.6 Thrombocytopenia, unspecified; E03.9 Hypothyroidism, unspecified; E11.649 Type 2 diabetes mellitus with hypoglycemia without coma; E66.9 Obesity, unspecified; I48.91 Unspecified atrial fibrillation; G89.29 Other chronic pain; G47.33 Obstructive sleep apnea (adult) (pediatric); K75.81 Nonalcoholic steatohepatitis (NASH); I50.82 Biventricular heart failure; F17.200 Nicotine dependence, unspecified, uncomplicated; E78.5 Hyperlipidemia, unspecified; I27.29 Other secondary pulmonary hypertension; I49.5 Sick sinus syndrome; Z66 Do not resuscitate; Z51.5 Encounter for palliative care; N18.9 Chronic kidney disease, unspecified; K80.20 Calculus of gallbladder without cholecystitis without obstruction; Z79.01 Long term (current) use of anticoagulants; Z82.49 Family history of ischemic heart disease and other diseases of the circulatory system; Z68.36 Body mass index [BMI] 36.0-36.9, adult; Z88.2 Allergy status to sulfonamides; Z86.73 Personal history of transient ischemic attack (TIA), and cerebral infarction without residual deficits; Z83.3 Family history of diabetes mellitus; Z95.0 Presence of cardiac pacemaker
CPT/HCPCS: 36415; 71045; 76700; 76770; 80048; 80053; 81001; 82105; 82436; 82533; 82550; 82570; 82962; 83036; 83605; 83880; 84133; 84145; 84300; 84484; 85025; 85610; 87040; 87081; 87086; 87324; 90656; 93005; 93306; 96374; 99285; G0378; J0456; J0696; J1644; J7042; J7060; J1940; J7030; J7050; J7120

== ENCOUNTER 2018-03-28 01:31 | Inpatient (IN) | payer MEDICARE ==
[~2018-03-28] VITALS: Ht 182.9 cm; Wt 119.5 kg
[~2018-03-28 01:31] MED LIST changes: +SPIR100T PO; +WARF2.5T32 PO; +WARF2.5T32 PO-COUM; -WARF2.5T73 PO; -WARF2.5T73 PO-COUM
[2018-03-28] MEDS ORDERED: FURO-93 PO (01:59)
[2018-03-28] MEDS ORDERED: WARF3TAB PO (01:59)
[2018-03-28] MEDS ORDERED: AMIO100T4 PO (01:59)
[2018-03-28] MEDS ORDERED: SODIUM CHLORIDE FLUSH 10ML SYR IVF ONE (02:00)
[2018-03-28 02:26] LABS: INTERNATIONAL NORMALIZED RATIO 1.73 (0.93-1.1); PROTHROMBIN TIME 17.8 Seconds (9.6-11.5)
[2018-03-28 02:27] LABS: ALBUMIN 2.7 g/dL (3.4-5.0); ANION GAP 9 mmol/L (5-15); CALCIUM 8.2 mg/dL (8.5-10.1); CHLORIDE 102 mmol/L (98-107)
[2018-03-28 02:33] LABS: ALANINE AMINOTRANSFERASE 31 U/L (12-78); ALKALINE PHOSPHATASE 170 U/L (45-117); BILIRUBIN,TOTAL 1.8 mg/dL (0.2-1.0); CREATININE 1.77 mg/dL (0.7-1.3); MEAN CORPUSCULAR HEMOGLOBIN 32.5 pg (27.5-34.5); MEAN CORPUSCULAR HGB CONC 34.1 g/dL (33.2-36.2); MEAN CORPUSCULAR VOLUME 95.4 fL (81-97); PLATELET COUNT 102 x10^3/uL (130-400); RED BLOOD COUNT 3.24 x10^6/uL (4.38-5.82); RED CELL DISTRIBUTION WIDTH 17.5 % (9.4-14.8); TOTAL PROTEIN 8.1 g/dL (6.4-8.2); TROPONIN I < 0.015 ng/mL (0.000-0.045)
[2018-03-28 02:49] LABS: BASOPHILS # (AUTO) 0.02 x10^3/uL (0-0.1); BASOPHILS % (AUTO) 1 % (0-1); EOSINOPHILS # (AUTO) 0.13 x10^3/uL (0-0.4); EOSINOPHILS % (AUTO) 5 % (1-7); LYMPHOCYTES % (AUTO) 22 % (22-44); MD SCAN; MONOCYTES # (AUTO) 0.39 x10^3/uL (0.2-0.8); MONOCYTES % (AUTO) 15 % (2-9); NEUTROPHILS # (AUTO) 1.56 x10^3/uL (1.8-6.8); NEUTROPHILS % (AUTO) 58 % (42-75)
[2018-03-28] MEDS ORDERED: CEFTRIAXONE PMX 1GM/50ML 50 ML IVPB ONE (03:00)
[2018-03-28] MEDS ORDERED: AZITHROMYCIN 500 MG in SODIUM CHLORIDE 0.9% 250 ML IVPB ONE (03:00)
[2018-03-28] MEDS ORDERED: CEFTRIAXONE PMX 1GM/50ML 0 ML ONE (03:03)
[2018-03-28 04:28] VITALS: BP 107/64
[2018-03-28] MEDS ORDERED: DOCUSATE 100 MG CAPSULE PO PRN (04:30)
[2018-03-28] MEDS ORDERED: ONDANSETRON 2MG/ML, 2ML IVPush PRN (04:30)
[2018-03-28] MEDS ORDERED: ONDANSETRON ODT 4 MG PO PRN (04:30)
[2018-03-28] MEDS ORDERED: OXYcodone IR 5MG TABLET PO PRN (04:30)
[2018-03-28] MEDS ORDERED: hydrALAzine 20 MG/ML, 1ML IVPush PRN (04:30)
[2018-03-28] MEDS ORDERED: POLYETHYLENE GLYCOL 17 GM PACKET PO PRN (04:30)
[2018-03-28] MEDS ORDERED: LABETALOL 5MG/ML, 20ML IVPush PRN (04:30)
[2018-03-28] MEDS ORDERED: morphine SULFATE 10 MG/ML, 1ML IVPush PRN (04:30)
[2018-03-28] MEDS ORDERED: BISACODYL 10 MG SUPP PR PRN (04:30)
[2018-03-28] MEDS ORDERED: PROMETHAZINE 25 MG/ML, 1ML IM PRN (04:30)
[2018-03-28 05:08] LABS: CULTURE INDICATED? NO; MICROSCOPIC NOT IND
[2018-03-28] MEDS ORDERED: LEVOTHYROXINE 125 MCG TABLET PO SCH (06:00)
[2018-03-28] MEDS: METOPROLOL TARTRATE 25 MG TABLET PO SCH ×3 (06:29→18:12)
[2018-03-28 06:34] LABS: FREE T4 (FREE THYROXINE) 1.29 ng/dL (0.76-1.46); THYROID STIMULATING HORMONE 13.9 mIU/L (0.358-3.740)
[2018-03-28 06:38] LABS: HEMOGLOBIN A1C 4.6 % (4.2-6.3)
[2018-03-28 07:05] VITALS: BP 106/67
[2018-03-28 07:48] VITALS: BP 106/67
[2018-03-28] MEDS ORDERED: TEMPLATE NON-FORMULARY MED. (Warfarin Sodium** (Coumadin**) 3 MG) PO SCH (09:00)
[2018-03-28] MEDS ORDERED: LEVO125T PO (10:05)
[2018-03-28] MEDS ORDERED: FURO40TA6 PO (10:05)
[2018-03-28] MEDS ORDERED: SPIR100T PO (10:05)
[2018-03-28] MEDS ORDERED: POLY17PO5 PO (10:05)
[2018-03-28] MEDS: FUROSEMIDE 40 MG TABLET PO SCH (10:34)
[2018-03-28] MEDS: AMIODARONE 200 MG TABLET PO SCH (10:34)
[2018-03-28] MEDS: FERROUS SULFATE 325 MG TABLET PO SCH ×2 (10:34→21:15)
[2018-03-28] MEDS: SPIRONOLACTONE 100 MG TABLET PO SCH (10:35)
[2018-03-28 13:01] VITALS: BP_SYST 100; BP_SYST 180; BP_DIAS 47; BP_DIAS 53
[2018-03-28] MEDS ORDERED: WARFARIN 5 MG TABLET PO-COUM ONE (18:00)
[2018-03-28 20:22] VITALS: BP 99/58
[2018-03-28] MEDS: PRAVASTATIN 20 MG TABLET PO SCH (21:15)
[2018-03-29 03:12] VITALS: BP 109/73
[2018-03-29 04:54] LABS: INTERNATIONAL NORMALIZED RATIO 1.79 (0.93-1.1); PROTHROMBIN TIME 18.4 Seconds (9.6-11.5)
[2018-03-29 04:56] LABS: ALBUMIN 2.4 g/dL (3.4-5.0); ANION GAP 6 mmol/L (5-15); CALCIUM 8.2 mg/dL (8.5-10.1); CHLORIDE 101 mmol/L (98-107)
[2018-03-29 05:02] LABS: ALANINE AMINOTRANSFERASE 26 U/L (12-78); ALKALINE PHOSPHATASE 140 U/L (45-117); BILIRUBIN,TOTAL 1.3 mg/dL (0.2-1.0); CHOL/HDL RATIO 2.9; CHOLESTEROL, TOTAL 89 mg/dL (140-239); CREATININE 1.55 mg/dL (0.7-1.3); HDL CHOL % 35 % (26-37); HDL CHOLESTEROL (DIRECT) 31 mg/dL (40-60); LDL CHOLESTEROL,CALCULATED 42 mg/dL (54-169); LDL/HDL RATIO 1.4 (0.5-3.0); TOTAL PROTEIN 7.2 g/dL (6.4-8.2); TRIGLYCERIDES 79 mg/dL (50-200); VLDL CHOLESTEROL 16 mg/dL (0-25)
[2018-03-29 05:51] VITALS: BP 107/64
[2018-03-29] MEDS ORDERED: LEVOTHYROXINE 125 MCG TABLET PO SCH (06:00)
[2018-03-29] MEDS ORDERED: LEVOTHYROXINE 150 MCG TABLET ONE (06:12)
[2018-03-29] MEDS: METOPROLOL TARTRATE 25 MG TABLET PO SCH ×2 (06:18→17:43)
[2018-03-29] MEDS: LEVOTHYROXINE 150 MCG TABLET PO SCH (06:21)
[2018-03-29 06:39] LABS: MEAN CORPUSCULAR HEMOGLOBIN 31.9 pg (27.5-34.5); MEAN CORPUSCULAR HGB CONC 33.4 g/dL (33.2-36.2); MEAN CORPUSCULAR VOLUME 95.4 fL (81-97); PLATELET COUNT 103 x10^3/uL (130-400); RED BLOOD COUNT 3.17 x10^6/uL (4.38-5.82); RED CELL DISTRIBUTION WIDTH 17.6 % (9.4-14.8)
[2018-03-29 07:02] LABS: BASOPHILS # (AUTO) 0.02 x10^3/uL (0-0.1); BASOPHILS % (AUTO) 1 % (0-1); EOSINOPHILS # (AUTO) 0.12 x10^3/uL (0-0.4); EOSINOPHILS % (AUTO) 5 % (1-7); LYMPHOCYTES # (AUTO) 0.61 x10^3/uL (1-3.4); LYMPHOCYTES % (AUTO) 22 % (22-44); MD SCAN; MONOCYTES # (AUTO) 0.34 x10^3/uL (0.2-0.8); MONOCYTES % (AUTO) 12 % (2-9); NEUTROPHILS # (AUTO) 1.68 x10^3/uL (1.8-6.8); NEUTROPHILS % (AUTO) 61 % (42-75)
[2018-03-29 07:07] VITALS: BP 92/59
[2018-03-29] MEDS: FUROSEMIDE 40 MG TABLET PO SCH (08:25)
[2018-03-29] MEDS: FERROUS SULFATE 325 MG TABLET PO SCH ×2 (08:25→20:27)
[2018-03-29] MEDS: SPIRONOLACTONE 100 MG TABLET PO SCH (08:26)
[2018-03-29] MEDS: AMIODARONE 200 MG TABLET PO SCH (08:26)
[2018-03-29 13:13] VITALS: BP 103/65
[2018-03-29] MEDS ORDERED: WARFARIN 3 MG TABLET PO-COUM ONE (18:00)
[2018-03-29 19:27] VITALS: BP 108/68
[2018-03-29] MEDS: PRAVASTATIN 20 MG TABLET PO SCH (20:27)
[2018-03-30 01:44] VITALS: BP 106/58
[2018-03-30 05:45] VITALS: BP 100/59
[2018-03-30] MEDS: METOPROLOL TARTRATE 25 MG TABLET PO SCH ×2 (05:47→17:40)
[2018-03-30] MEDS: LEVOTHYROXINE 150 MCG TABLET PO SCH (05:47)
[2018-03-30 06:01] LABS: INTERNATIONAL NORMALIZED RATIO 1.66 (0.93-1.1); PROTHROMBIN TIME 17.1 Seconds (9.6-11.5)
[2018-03-30 07:06] VITALS: BP 104/63
[2018-03-30] MEDS: AMIODARONE 200 MG TABLET PO SCH (08:39)
[2018-03-30] MEDS: SPIRONOLACTONE 100 MG TABLET PO SCH (08:40)
[2018-03-30] MEDS: FUROSEMIDE 40 MG TABLET PO SCH ×2 (08:41→21:22)
[2018-03-30] MEDS: FERROUS SULFATE 325 MG TABLET PO SCH ×2 (08:42→21:22)
[2018-03-30 12:49] VITALS: BP 101/58
[2018-03-30] MEDS ORDERED: WARFARIN 7.5 MG TABLET PO-COUM ONE (18:00)
[2018-03-30 18:42] VITALS: BP 102/63
[2018-03-30] MEDS: PRAVASTATIN 20 MG TABLET PO SCH (21:21)
[2018-03-31 00:44] VITALS: BP 101/62
[2018-03-31 05:07] LABS: BASOPHILS # (AUTO) 0.06 x10^3/uL (0-0.1); BASOPHILS % (AUTO) 2 % (0-1); EOSINOPHILS # (AUTO) 0.24 x10^3/uL (0-0.4); EOSINOPHILS % (AUTO) 7 % (1-7); LYMPHOCYTES # (AUTO) 0.83 x10^3/uL (1-3.4); LYMPHOCYTES % (AUTO) 25 % (22-44); MD NO; MEAN CORPUSCULAR HEMOGLOBIN 31.8 pg (27.5-34.5); MEAN CORPUSCULAR HGB CONC 33.4 g/dL (33.2-36.2); MEAN CORPUSCULAR VOLUME 95.3 fL (81-97); MEAN PLATELET VOLUME 8.1 fL (7.4-10.4); MONOCYTES # (AUTO) 0.32 x10^3/uL (0.2-0.8); MONOCYTES % (AUTO) 10 % (2-9); NEUTROPHILS # (AUTO) 1.93 x10^3/uL (1.8-6.8); NEUTROPHILS % (AUTO) 57 % (42-75); PLATELET COUNT 112 x10^3/uL (130-400); RED BLOOD COUNT 3.18 x10^6/uL (4.38-5.82); RED CELL DISTRIBUTION WIDTH 17.4 % (9.4-14.8)
[2018-03-31 05:16] LABS: INTERNATIONAL NORMALIZED RATIO 1.85 (0.93-1.1); PROTHROMBIN TIME 19.2 Seconds (9.6-11.5)
[2018-03-31 05:20] LABS: ANION GAP 5 mmol/L (5-15); CALCIUM 8.3 mg/dL (8.5-10.1); CHLORIDE 102 mmol/L (98-107); CREATININE 1.27 mg/dL (0.7-1.3)
[2018-03-31 06:21] VITALS: BP 115/67
[2018-03-31] MEDS: METOPROLOL TARTRATE 25 MG TABLET PO SCH (06:23)
[2018-03-31] MEDS: LEVOTHYROXINE 150 MCG TABLET PO SCH (06:23)
[2018-03-31 06:59] VITALS: BP 103/63
[2018-03-31] MEDS: AMIODARONE 200 MG TABLET PO SCH (07:48)
[2018-03-31] MEDS: FERROUS SULFATE 325 MG TABLET PO SCH (07:49)
[2018-03-31] MEDS: FUROSEMIDE 40 MG TABLET PO SCH (07:49)
[2018-03-31] MEDS: SPIRONOLACTONE 100 MG TABLET PO SCH (07:49)
[2018-03-31 12:27] VITALS: BP 103/62
[2018-03-31] MEDS ORDERED: WARFARIN 7.5 MG TABLET PO-COUM ONE (18:00)
[2018-04-01] MEDS ORDERED: SPIRONOLACTONE 50 MG TABLET PO SCH (09:00)
== END 2018-03-31 17:15 | disposition home or self-care (01) | DRG 682 ==
LOC: ED 01:49 → EDIP 02:46 → 4EST 03:30 → DCLOUNGE 03-31 14:47
PROVIDERS: ADMIT Internal Medicine; ATTEND Hospitalist
DX: N17.0 Acute kidney failure with tubular necrosis (principal); J15.9 Unspecified bacterial pneumonia; I50.23 Acute on chronic systolic (congestive) heart failure; I13.0 Hypertensive heart and chronic kidney disease with heart failure and stage 1 through stage 4 chronic kidney disease, or unspecified chronic kidney disease; E44.0 Moderate protein-calorie malnutrition; D68.69 Other thrombophilia; I69.351 Hemiplegia and hemiparesis following cerebral infarction affecting right dominant side; J44.0 Chronic obstructive pulmonary disease with (acute) lower respiratory infection; J96.11 Chronic respiratory failure with hypoxia; K76.6 Portal hypertension; W01.0XXA Fall on same level from slipping, tripping and stumbling without subsequent striking against object, initial encounter; Y93.01 Activity, walking, marching and hiking; N18.2 Chronic kidney disease, stage 2 (mild); E11.22 Type 2 diabetes mellitus with diabetic chronic kidney disease; D64.9 Anemia, unspecified; I27.20 Pulmonary hypertension, unspecified; D69.6 Thrombocytopenia, unspecified; E03.9 Hypothyroidism, unspecified; K74.60 Unspecified cirrhosis of liver; E78.5 Hyperlipidemia, unspecified; E86.0 Dehydration; G47.33 Obstructive sleep apnea (adult) (pediatric); I08.1 Rheumatic disorders of both mitral and tricuspid valves; I48.0 Paroxysmal atrial fibrillation; Z88.2 Allergy status to sulfonamides; Z79.01 Long term (current) use of anticoagulants; Z82.49 Family history of ischemic heart disease and other diseases of the circulatory system; Z83.3 Family history of diabetes mellitus; Z87.891 Personal history of nicotine dependence; Z95.0 Presence of cardiac pacemaker; Z99.81 Dependence on supplemental oxygen; Z98.49 Cataract extraction status, unspecified eye; Z68.35 Body mass index [BMI] 35.0-35.9, adult
CPT/HCPCS: 36415; 70450; 71045; 71250; 72128; 72131; 80048; 80053; 80061; 81003; 83036; 83735; 83880; 84439; 84443; 84484; 85025; 85610; 85730; 87040; 93005; G0378; J0456; J7050

== ENCOUNTER 2018-08-21 22:21 | Inpatient (IN) | payer MEDICARE ==
[~2018-08-21] VITALS: Ht 182.9 cm; Wt 103.1 kg
[~2018-08-21 22:21] MED LIST changes: +AMIO100T4 PO; +WARF3TAB PO
--- NOTE | 2018-08-21 22:41 | NUR ---
Pt wheeled to room with EDT. Dr. Torres at bedside to evaluate pt.
[2018-08-21] MEDS ORDERED: coumadin PO (22:50)
[2018-08-21] MEDS ORDERED: SODIUM CHLORIDE FLUSH 10ML SYR IVF ONE (23:00)
--- NOTE | 2018-08-21 23:23 | NUR ---
PIV started, labs drawn, pt aware of POC for CT head. Dressing placed to left arm by EDT.
--- NOTE | 2018-08-21 23:25 | NUR ---
Pt to imaging, with tech, via [facility].
[2018-08-21 23:31] LABS: BASOPHILS # (AUTO) 0.01 x10^3/uL (0-0.1); BASOPHILS % (AUTO) 0 % (0-1); EOSINOPHILS # (AUTO) 0.16 x10^3/uL (0-0.4); EOSINOPHILS % (AUTO) 4 % (1-7); LYMPHOCYTES # (AUTO) 0.44 x10^3/uL (1-3.4); LYMPHOCYTES % (AUTO) 10 % (22-44); MD NO; MEAN CORPUSCULAR HEMOGLOBIN 31.8 pg (27.5-34.5); MEAN CORPUSCULAR HGB CONC 33.7 g/dL (33.2-36.2); MEAN CORPUSCULAR VOLUME 94.3 fL (81-97); MEAN PLATELET VOLUME 8.8 fL (7.4-10.4); MONOCYTES # (AUTO) 0.29 x10^3/uL (0.2-0.8); MONOCYTES % (AUTO) 7 % (2-9); NEUTROPHILS # (AUTO) 3.51 x10^3/uL (1.8-6.8); NEUTROPHILS % (AUTO) 80 % (42-75); PLATELET COUNT 100 x10^3/uL (130-400); RED BLOOD COUNT 3.84 x10^6/uL (4.38-5.82); RED CELL DISTRIBUTION WIDTH 16.1 % (9.4-14.8)
[2018-08-21 23:42] LABS: INTERNATIONAL NORMALIZED RATIO 1.27 (0.93-1.1); PROTHROMBIN TIME 13.2 Seconds (9.6-11.5)
[2018-08-21 23:43] LABS: ALANINE AMINOTRANSFERASE 22 U/L (12-78); ALBUMIN 3.4 g/dL (3.4-5.0); ANION GAP 6 mmol/L (5-15); CALCIUM 8.9 mg/dL (8.5-10.1); CHLORIDE 108 mmol/L (98-107); CREATININE 1.59 mg/dL (0.7-1.3)
[2018-08-21 23:47] LABS: ALKALINE PHOSPHATASE 116 U/L (45-117); BILIRUBIN,TOTAL 2.6 mg/dL (0.2-1.0); TROPONIN I < 0.015 ng/mL (0.000-0.045)
--- NOTE | 2018-08-21 23:51 | NUR ---
EDTs at bedside to re-dress pt's left arm as he is bleeding through dressing.
--- NOTE | 2018-08-22 00:48 | NUR ---
Pt sleeping on [employer]. VSS.
[2018-08-22] MEDS ORDERED: hydrALAzine 20 MG/ML, 1ML IVPush PRN (01:00)
--- NOTE | 2018-08-22 01:14 | NUR ---
Telephone SBAR report given to RNGracia. Pt made aware of new room assignment.
[2018-08-22 02:23] VITALS: BP 113/79
[2018-08-22] MEDS: METOPROLOL TARTRATE 25 MG TABLET PO SCH ×2 (05:26→18:34)
[2018-08-22] MEDS: LEVOTHYROXINE 150 MCG TABLET PO SCH (05:26)
[2018-08-22 07:28] VITALS: BP 109/59
[2018-08-22 08:16] LABS: MEAN CORPUSCULAR HGB CONC 33.9 g/dL (33.2-36.2); MEAN CORPUSCULAR VOLUME 94.6 fL (81-97); RED BLOOD COUNT 3.31 x10^6/uL (4.38-5.82); RED CELL DISTRIBUTION WIDTH 15.8 % (9.4-14.8)
[2018-08-22] MEDS: FUROSEMIDE 40 MG TABLET PO SCH (08:16)
[2018-08-22] MEDS: FERROUS SULFATE 325 MG TABLET PO SCH ×2 (08:17→22:07)
[2018-08-22 08:20] LABS: ALANINE AMINOTRANSFERASE 17 U/L (12-78); ALBUMIN 2.7 g/dL (3.4-5.0); ANION GAP 5 mmol/L (5-15); CALCIUM 8.7 mg/dL (8.5-10.1); CHLORIDE 110 mmol/L (98-107); CREATININE 1.34 mg/dL (0.7-1.3)
[2018-08-22 08:22] LABS: ALKALINE PHOSPHATASE 88 U/L (45-117); TOTAL PROTEIN 6.6 g/dL (6.4-8.2)
[2018-08-22] MEDS ORDERED: AMIODARONE 200 MG TABLET PO SCH (09:00)
[2018-08-22 09:13] LABS: BASOPHILS # (AUTO) 0.01 x10^3/uL (0-0.1); BASOPHILS % (AUTO) 0 % (0-1); EOSINOPHILS # (AUTO) 0.15 x10^3/uL (0-0.4); EOSINOPHILS % (AUTO) 5 % (1-7); LYMPHOCYTES # (AUTO) 0.45 x10^3/uL (1-3.4); LYMPHOCYTES % (AUTO) 14 % (22-44); MD SCAN; MONOCYTES # (AUTO) 0.31 x10^3/uL (0.2-0.8); MONOCYTES % (AUTO) 10 % (2-9); NEUTROPHILS # (AUTO) 2.24 x10^3/uL (1.8-6.8); NEUTROPHILS % (AUTO) 71 % (42-75)
[2018-08-22 09:23] LABS: MEAN PLATELET VOLUME 8.8 fL (7.4-10.4); PLATELET COUNT 87 x10^3/uL (130-400)
[2018-08-22 14:06] VITALS: BP 112/62
[2018-08-22 18:28] VITALS: BP 105/65
[2018-08-22 19:01] VITALS: BP 96/57
[2018-08-22] MEDS: PRAVASTATIN 20 MG TABLET PO SCH (22:07)
[2018-08-23] VITALS (7 sets, daily range): BP systolic 96–110; BP diastolic 58–68
[2018-08-23 01:39] LABS: INTERNATIONAL NORMALIZED RATIO 1.29 (0.93-1.1); PROTHROMBIN TIME 13.4 Seconds (9.6-11.5)
[2018-08-23] MEDS ORDERED: WARFARIN 5 MG TABLET PO-COUM ONE (03:30)
[2018-08-23] MEDS ORDERED: WARFARIN 7.5 MG TABLET PO-COUM ONE (03:30)
[2018-08-23] MEDS: METOPROLOL TARTRATE 25 MG TABLET PO SCH ×2 (06:21→18:00)
[2018-08-23] MEDS: LEVOTHYROXINE 150 MCG TABLET PO SCH (06:23)
[2018-08-23] MEDS: FERROUS SULFATE 325 MG TABLET PO SCH ×2 (11:19→20:50)
[2018-08-23] MEDS: FUROSEMIDE 40 MG TABLET PO SCH (11:19)
[2018-08-23] MEDS: PRAVASTATIN 20 MG TABLET PO SCH (20:50)
[2018-08-24 00:20] VITALS: BP 100/61
[2018-08-24 05:42] LABS: INTERNATIONAL NORMALIZED RATIO 1.27 (0.93-1.1); PROTHROMBIN TIME 13.2 Seconds (9.6-11.5)
[2018-08-24 06:13] VITALS: BP 99/54
[2018-08-24] MEDS: METOPROLOL TARTRATE 25 MG TABLET PO SCH (06:14)
[2018-08-24] MEDS: LEVOTHYROXINE 150 MCG TABLET PO SCH (06:20)
[2018-08-24 07:48] VITALS: BP 98/58
[2018-08-24] MEDS: FERROUS SULFATE 325 MG TABLET PO SCH ×2 (08:28→20:42)
[2018-08-24] MEDS: FUROSEMIDE 40 MG TABLET PO SCH (08:28)
[2018-08-24 10:00] LABS: ALBUMIN 2.8 g/dL (3.4-5.0)
[2018-08-24 10:01] LABS: TOTAL PROTEIN 6.5 g/dL (6.4-8.2)
[2018-08-24 15:26] VITALS: BP 108/68
[2018-08-24] MEDS ORDERED: LIDOCAINE 1%, 10ML ONE (15:44)
[2018-08-24] MEDS ORDERED: WARFARIN 5 MG TABLET PO-COUM ONE (18:00)
[2018-08-24 19:31] VITALS: BP 117/67
[2018-08-24] MEDS: PRAVASTATIN 20 MG TABLET PO SCH (20:42)
[2018-08-25 01:06] VITALS: BP 102/58
[2018-08-25 05:22] LABS: INTERNATIONAL NORMALIZED RATIO 1.34 (0.93-1.1); PROTHROMBIN TIME 13.9 Seconds (9.6-11.5)
[2018-08-25] MEDS: LEVOTHYROXINE 150 MCG TABLET PO SCH (05:41)
[2018-08-25 07:52] VITALS: BP 94/52
[2018-08-25] MEDS: FERROUS SULFATE 325 MG TABLET PO SCH (08:15)
[2018-08-25] MEDS ORDERED: FURO-93 PO (11:31)
[2018-08-25 13:22] VITALS: BP 109/64
== END 2018-08-25 17:25 | disposition home or self-care (01) | DRG 291 ==
LOC: ED 22:42 → EDIP 08-22 00:33 → 4EST 08-22 01:39
PROVIDERS: ADMIT Family Medicine; ATTEND Family Medicine
PROC: 0HQEXZZ Repair Left Lower Arm Skin, External Approach (ICD-10-PCS; 2018-08-22)
PROC: 0W993ZZ Drainage of Right Pleural Cavity, Percutaneous Approach (ICD-10-PCS; principal; 2018-08-24)
DX: I11.0 Hypertensive heart disease with heart failure (principal); N17.0 Acute kidney failure with tubular necrosis; D68.59 Other primary thrombophilia; E44.0 Moderate protein-calorie malnutrition; I69.351 Hemiplegia and hemiparesis following cerebral infarction affecting right dominant side; J96.10 Chronic respiratory failure, unspecified whether with hypoxia or hypercapnia; J98.11 Atelectasis; K76.6 Portal hypertension; I48.0 Paroxysmal atrial fibrillation; I50.22 Chronic systolic (congestive) heart failure; S41.112A Laceration without foreign body of left upper arm, initial encounter; D64.9 Anemia, unspecified; D69.6 Thrombocytopenia, unspecified; E03.9 Hypothyroidism, unspecified; E11.9 Type 2 diabetes mellitus without complications; Z68.30 Body mass index [BMI] 30.0-30.9, adult; E78.5 Hyperlipidemia, unspecified; G47.33 Obstructive sleep apnea (adult) (pediatric); I27.20 Pulmonary hypertension, unspecified; J44.9 Chronic obstructive pulmonary disease, unspecified; K74.60 Unspecified cirrhosis of liver; S51.012A Laceration without foreign body of left elbow, initial encounter; W07.XXXA Fall from chair, initial encounter; Z79.01 Long term (current) use of anticoagulants; Z87.891 Personal history of nicotine dependence; Z88.2 Allergy status to sulfonamides; Z95.0 Presence of cardiac pacemaker; Z99.81 Dependence on supplemental oxygen; Y93.89 Activity, other specified; Y92.89 Other specified places as the place of occurrence of the external cause; Y99.8 Other external cause status
CPT/HCPCS: 32555; 36415; 70450; 71045; 80053; 82040; 82945; 83615; 83880; 84155; 84157; 84484; 85025; 85610; 85730; 87070; 87205; 88112; 89051; 93005; 99285; G0378